=== PATIENT | female | born 1985 | race American Indian/Alaskan Native ===

== ENCOUNTER 2019-06-28 11:04 | Emergency (ER) | payer OTHER ==
--- NOTE | 2019-06-28 11:15 | Event Note ---
ED Screening Note Date of service: 06/28/19 Time: 11:14 ED Screening Note: This initial assessment/diagnostic orders/clinical plan/treatment(s) is/are subject to change based on patients health status, clinical progression and re- assessment by fellow clinical providers in the ED. Further treatment and workup at subsequent clinical providers discretion. Patient/guardian urged not to elope from the ED as their condition may be serious if not clinically assessed and managed. Initial orders include:
[2019-06-28] MEDS ORDERED: DILAUDID ONE (11:18)
[2019-06-28] MEDS ORDERED: TORADOL IM ONE (11:46)
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
[2019-06-28 13:51] VITALS: BP 127/85
== END 2019-06-28 13:51 | disposition home or self-care (01) ==
LOC: ED 11:04
DX: S39.012A Strain of muscle, fascia and tendon of lower back, initial encounter (principal); Z90.49 Acquired absence of other specified parts of digestive tract; Z90.89 Acquired absence of other organs; Z79.899 Other long term (current) drug therapy; V89.2XXA Person injured in unspecified motor-vehicle accident, traffic, initial encounter; Y93.89 Activity, other specified; Y92.410 Unspecified street and highway as the place of occurrence of the external cause; Y99.8 Other external cause status
CPT/HCPCS: 72100; 96372; 99283; J1170; J1885

== ENCOUNTER 2020-10-24 02:42 | Emergency (ER) | payer OTHER ==
[2020-10-24] MEDS ORDERED: KETOROLAC 30 MG/1 ML INJ IM ONE (07:11)
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
[2020-10-24 07:56] VITALS: BP 149/91
[2020-10-24] MEDS ORDERED: TETANUS,DIPHTHERIA TOXOID ADULT 0.5 ML INJ IM ONE (08:00)
--- NOTE | 2020-10-24 08:05 | XRay Report ---
RIGHT HAND 3 VIEWS INDICATION / CLINICAL INFORMATION: Right hand injury COMPARISON: None available. FINDINGS: BONES / JOINT(S): No acute fracture or subluxation. No significant arthritis. SOFT TISSUES: No significant abnormality. ADDITIONAL FINDINGS: None. Signer Name: Jaciel Mooney MD Signed: 10/24/2020 8:01 AM Workstation Name: [id number]
[2020-10-24] MEDS ORDERED: DIPHtheria,PERTUSSIS(ACELL),TETANUS VACCINE/PF 0.5 ML VIAL IM ONE (08:55)
== END 2020-10-24 09:13 | disposition home or self-care (01) ==
LOC: ED 02:42
DX: S60.221A Contusion of right hand, initial encounter (principal); Z90.49 Acquired absence of other specified parts of digestive tract; Z90.89 Acquired absence of other organs; Z79.1 Long term (current) use of non-steroidal anti-inflammatories (NSAID); Z79.899 Other long term (current) drug therapy; X58.XXXA Exposure to other specified factors, initial encounter; Y93.89 Activity, other specified; Y92.89 Other specified places as the place of occurrence of the external cause; Y99.8 Other external cause status
CPT/HCPCS: 73130; 90471; 90715; 96372; 99283; J1885; 90714